=== PATIENT | male | born 1935 | race Caucasian/White ===

== ENCOUNTER 2017-03-07 09:56 | Day surgery (SDC) | payer OTHER ==
[~2017-03-07] VITALS: Ht 175.3 cm; Wt 86.2 kg
[~2017-03-07 09:56] MED LIST: AGGRENOX1 CAPSULE PO; BACTROBAN CREAM15 GM TP; CYANOCOBALAM1000 MCG PO; DOCUSATE SODIU100 MG PO; FLOMAX0.4 MG PO; HYDROCODON-ACE1 EAC7 PO; IRON325 M1 PO; KENALOG,ARISTOC80 G1 TP; LIPITOR40 MG PO; LOVENOX40 MG/0.4 SC; MELATONIN5 M1 PO; METAMUCIL FIBE3.4 GM PO; MIRALAX17 GM PO; NATURE'S TEARS15 M1 BOTH EYES; NEURONTIN100 MG PO; NEXIUM40 MG PO; NORCO 5/3251 TABLET PO; TOPROL XL50 MG PO; TOVIAZ4 MG PO; VALISONE 0.1%15 GM TP; VITAMIN D22000 UNIT PO; ZOLOFT25 MG PO
== END 2017-03-07 12:00 | disposition home or self-care (01) ==
LOC: PAIN 09:56 → SDC 10:45 → PAIN 10:45
DX: M54.2 Cervicalgia (principal); G89.29 Other chronic pain; M54.5 Low back pain; M47.816 Spondylosis without myelopathy or radiculopathy, lumbar region; I10 Essential (primary) hypertension; K21.9 Gastro-esophageal reflux disease without esophagitis; E78.5 Hyperlipidemia, unspecified; F41.9 Anxiety disorder, unspecified; Z86.73 Personal history of transient ischemic attack (TIA), and cerebral infarction without residual deficits; Z79.82 Long term (current) use of aspirin; Z87.891 Personal history of nicotine dependence; Z86.718 Personal history of other venous thrombosis and embolism; Z79.891 Long term (current) use of opiate analgesic
CPT/HCPCS: J1030; J3010; S0020

== ENCOUNTER 2017-03-14 07:41 | Day surgery (SDC) | payer OTHER ==
[~2017-03-14] VITALS: Ht 175.3 cm; Wt 86.2 kg
== END 2017-03-14 09:40 | disposition home or self-care (01) ==
LOC: PAIN 07:41
DX: M47.812 Spondylosis without myelopathy or radiculopathy, cervical region (principal); M54.2 Cervicalgia; G89.29 Other chronic pain; M54.5 Low back pain; I10 Essential (primary) hypertension; K21.9 Gastro-esophageal reflux disease without esophagitis; F41.9 Anxiety disorder, unspecified; E78.5 Hyperlipidemia, unspecified; Z87.891 Personal history of nicotine dependence
CPT/HCPCS: J1030; J3010; S0020

== ENCOUNTER 2017-06-24 06:55 | Day surgery (SDC) | payer OTHER ==
[~2017-06-24] VITALS: Ht 175.3 cm; Wt 84.4 kg
[~2017-06-24 06:55] MED LIST changes: +METAMUCIL PACKE1 PKT PO; +OMEPRAZOLE40 M1 PO
== END 2017-06-24 09:14 | disposition home or self-care (01) ==
LOC: PAIN 06:55 → SDC 07:30 → PAIN 07:30
DX: M47.812 Spondylosis without myelopathy or radiculopathy, cervical region (principal); M54.2 Cervicalgia; G89.29 Other chronic pain; I10 Essential (primary) hypertension; M47.816 Spondylosis without myelopathy or radiculopathy, lumbar region; K21.9 Gastro-esophageal reflux disease without esophagitis; F41.9 Anxiety disorder, unspecified; E78.5 Hyperlipidemia, unspecified; J44.9 Chronic obstructive pulmonary disease, unspecified; Z79.891 Long term (current) use of opiate analgesic; Z79.82 Long term (current) use of aspirin; Z86.73 Personal history of transient ischemic attack (TIA), and cerebral infarction without residual deficits; Z86.718 Personal history of other venous thrombosis and embolism; Z87.891 Personal history of nicotine dependence
CPT/HCPCS: J1030; J2250; J3010; S0020

== ENCOUNTER 2017-10-10 08:40 | Day surgery (SDC) | payer OTHER ==
[~2017-10-10] VITALS: Ht 177.8 cm; Wt 85.7 kg
[~2017-10-10 08:40] MED LIST changes: +LORCET 5-325 M1 EACH PO
== END 2017-10-10 11:00 | disposition home or self-care (01) ==
LOC: PAIN 08:40 → SDC 09:15 → CATH 09:15 → PAIN 10:15 → SDC 10:15 → PAIN 11:00
DX: M47.812 Spondylosis without myelopathy or radiculopathy, cervical region (principal); G89.29 Other chronic pain; M50.31 Other cervical disc degeneration, high cervical region; I10 Essential (primary) hypertension; K21.9 Gastro-esophageal reflux disease without esophagitis; E78.5 Hyperlipidemia, unspecified; Z86.73 Personal history of transient ischemic attack (TIA), and cerebral infarction without residual deficits; Z87.891 Personal history of nicotine dependence; Z79.891 Long term (current) use of opiate analgesic
CPT/HCPCS: 93005; J1030; J2250; J3010; S0020